=== PATIENT | female | born 1975 ===

== ENCOUNTER 2018-07-10 08:28 | Outpatient (CLI) | payer OTHER ==
[~2018-07-10] VITALS: Ht 152.4 cm; Wt 88.5 kg
== END 2018-07-10 08:40 | disposition home or self-care (01) ==
LOC: OFIC 805 08:28
DX: H90.42 Sensorineural hearing loss, unilateral, left ear, with unrestricted hearing on the contralateral side (principal); J31.0 Chronic rhinitis